=== PATIENT | female | born 1995 | race Caucasian/White ===

== ENCOUNTER 2017-01-03 17:25 | Emergency (ER) | payer BC ==
[2017-01-03 17:36] VITALS: BP 123/66; PULSE 112; TEMP 99; BMI 35.4
[2017-01-03] MEDS ORDERED: ACETAMINOPHEN 325 MG TABLET (FP) PO ONE (17:57)
[2017-01-03] MEDS ORDERED: diazePAM 5 MG TABLET PO ONE (17:57)
[2017-01-03] MEDS ORDERED: ACETAMINOPHEN 325 MG TABLET (FP) ONE (18:04)
[2017-01-03] MEDS ORDERED: diazePAM 5 MG TABLET ONE (18:04)
[2017-01-03 18:16] LABS: URINE BILIRUBIN 1+ (NEGATIVE); URINE GLUCOSE (UA) Negative (NEGATIVE); URINE KETONE Negative (NEGATIVE); URINE NITRITE Negative (NEGATIVE); URINE UROBILINOGEN 0.2 (0.2-1.0)
[2017-01-03 18:21] LABS: URINE APPEARANCE CLOUDY; URINE BLOOD 2+ (NEGATIVE); URINE COLOR YELLOW; URINE LEUK ESTERASE TRACE (NEGATIVE); URINE PROTEIN 2+ (NEGATIVE)
--- NOTE | 2017-01-03 18:29 | PDOC ---
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 The patient states she developed palpitations, sweating, and nausea while giving her speech today prior to developing right flank pain. She states she drove home and noticed she was salivating excessively, but denies feeling anxious in her car. She reports her right flank pain has persisted since her panic attack at 2:45PM today. She reports her pain is exacerbated with movement and alleviated at rest. She reports taking 400 mg Advil at 2:55PM. Secondarily, the patient admits to having dysuria, which she had for a few days before the episode today. The patient states she sees a therapist for her anxiety, but denies taking medication for her anxiety. She denies chest pain, shortness of breath, headache and dizziness. She denies fever, chills, nausea, vomit, diarrhea and constipation. She denies dysuria, frequency, urgency and hematuria. Allergies: NKDA <Carrie Brambila - Last Filed: 01/03/17 18:51> - General Chief Complaint: Back Pain Stated Complaint: BACK PAIN Time Seen by Provider: 01/03/17 17:35 Past History - Past Medical History Psychiatric Problems: Yes (ANXIETY, PANIC DISORDER, SOCIAL ANXIETY) Other medical history: PCOS - Psycho/Social/Smoking Cessation Hx Anxiety: No Suicidal Ideation: No Smoking History: Never smoked Information on smoking cessation initiated: No Hx Alcohol Use: No Drug/Substance Use Hx: No <Kathie Gil - Last Filed: 01/03/17 18:45> <Carrie Brambila - Last Filed: 01/03/17 18:51> - Past Medical History Allergies/Adverse Reactions: Allergies Allergy/AdvReac Type Severity Reaction Status Date / Time No Known Drug Allergies Allergy Verified 01/03/17 17:33 SEAFOOD Allergy Uncoded 01/03/17 17:33 Home Medications: Ambulatory Orders Metformin HCl 500 mg PO BID 01/03/17 Sulfamethoxazole/Trimethoprim [Bactrim Ds Tablet] 1 each PO BID #14 tablet 01/03 Review of Systems - Review of Systems Able to Perform ROS?: Yes Comments:: 01/03/17 18:29 GENERAL/CONSTITUTIONAL: No fever or chills. No weakness. HEAD, EYES, EARS, NOSE AND THROAT: No change in vision. No ear pain or discharge. No sore throat. CARDIOVASCULAR: No chest pain or shortness of breath. RESPIRATORY: No cough, wheezing, or hemoptysis. GASTROINTESTINAL: No nausea, vomiting, diarrhea or constipation. GENITOURINARY: (+) right flank pain and dysuria. No frequency, or change in urination. MUSCULOSKELETAL: No joint or muscle swelling or pain. No neck or back pain. SKIN: No rash NEUROLOGIC: No headache, vertigo, loss of consciousness, or change in strength/ sensation. ENDOCRINE: No increased thirst. No abnormal weight change. HEMATOLOGIC/LYMPHATIC: No anemia, easy bleeding, or history of blood clots. ALLERGIC/IMMUNOLOGIC: No hives or skin allergy. <Carrie Brambila - Last Filed: 01/03/17 18:51> *Physical Exam - Vital Signs Last Vital Signs Temp Pulse Resp BP Pulse Ox 99 F 112 H 20 123/66 97 01/03/17 17:25 01/03/17 17:25 01/03/17 17:25 01/03/17 17:25 01/03/17 17:25 <Kathie Gil - Last Filed: 01/03/17 18:45> - Vital Signs Last Vital Signs Temp Pulse Resp BP Pulse Ox 99 F 112 H 20 123/66 97 01/03/17 17:25 01/03/17 17:25 01/03/17 17:25 01/03/17 17:25 01/03/17 17:25 - Physical Exam Comments: 01/03/17 18:32 GENERAL: Awake, alert, and fully oriented, in no acute distress HEAD: No signs of trauma EYES: PERRLA, EOMI, sclera anicteric, conjunctiva clear ENT: Auricles normal inspection, hearing grossly normal, nares patent, oropharynx clear without exudates. Moist mucosa NECK: Normal ROM, supple, no lymphadenopathy, JVD, or masses LUNGS: Breath sounds equal, clear to auscultation bilaterally. No wheezes, and no crackles HEART: Regular rate and rhythm, normal S1 and S2, no murmurs, rubs or gallops ABDOMEN: (+) mild suprapubic tenderness to palpation without rebound or guarding. Soft, normoactive bowel sounds. No guarding, no rebound. No masses MUSCULOSKELETAL: (+) right CVA tenderness EXTREMITIES: Normal range of motion, no edema. No clubbing or cyanosis. No cords, erythema, or tenderness NEUROLOGICAL: Cranial nerves II through XII grossly intact. Normal speech, normal gait SKIN: (+) multiple superficial linear abrasions to left forearm of various healing stages. Warm, Dry, normal turgor, no rashes or lesions noted. <Carrie Brambila - Last Filed: 01/03/17 18:51> ED Treatment Course - ADDITIONAL ORDERS Additional order review: Laboratory Results 01/03/17 18:00 Urine Color Yellow Urine Appearance Cloudy Urine pH 6.0 Ur Specific [place] >= 1.030 H Urine Protein 2+ H Urine Glucose (UA) Negative Urine Ketones Negative Urine Blood 2+ H Urine Nitrite Negative Urine Bilirubin 1+ H Urine Urobilinogen 0.2 Ur Leukocyte Esterase Trace H - Medications Given in the ED: ED Medications Discontinued Medications Generic Name Dose Route Start Last Admin Trade Name Freq PRN Reason Stop Dose Admin Acetaminophen 650 mg 01/03/17 17:57 01/03/17 18:10 Tylenol - PO 01/03/17 17:58 650 mg ONCE ONE Administration Diazepam 5 mg 01/03/17 17:57 01/03/17 18:10 Valium - PO 01/03/17 17:58 5 mg ONCE ONE Administration <Kathie Gil - Last Filed: 01/03/17 18:45> - ADDITIONAL ORDERS Additional order review: Laboratory Results 01/03/17 18:00 Urine Color Yellow Urine Appearance Cloudy Urine pH 6.0 Ur Specific [place] >= 1.030 H Urine Protein 2+ H Urine Glucose (UA) Negative Urine Ketones Negative Urine Blood 2+ H Urine Nitrite Negative Urine Bilirubin 1+ H Urine Urobilinogen 0.2 Ur Leukocyte Esterase Trace H - Medications Given in the ED: ED Medications Discontinued Medications Generic Name Dose Route Start Last Admin Trade Name Freq PRN Reason Stop Dose Admin Acetaminophen 650 mg 01/03/17 17:57 09/05/17 18:10 Tylenol - PO 01/03/17 17:58 650 mg ONCE ONE Administration Diazepam 5 mg 01/03/17 17:57 01/03/17 18:10 Valium - PO 01/03/17 17:58 5 mg ONCE ONE Administration <Carrie Brambila - Last Filed: 01/03/17 18:51> Medical Decision Making - Medical Decision Making 01/03/17 18:23 21 yo F with h/o anxiety reactions, frequent panic attacks, here with c/o back pain since her panic attack today. pt state was at work had sudden onset palpitations, diaphoresis, and lighteaded similar to prior panic attacks. now c/ o right sided flank pain. worse with movement, does report dysuria. no urgency, no hematuria. on exam awake alert lungs clear heart rrr nomrg. abd soft mild suprapubic ttp, no rebound no guard. mild right cva ttp. no mildlien spinal tenderness. 5/5 all four ext. sensation intact. plan valtrex 1000 mg tid, for 7 days. tylenol for pain. <Kathie Gil - Last Filed: 01/03/17 18:45> *DC/Admit/Observation/Transfer <Kathie Gil - Last Filed: 01/03/17 18:45> - Attestations Scribe Attestion: 01/03/17 18:40 Documentation prepared by Carrie Brambila, acting as medical doctor for Kathie Gil MD <Carrie Brambila - Last Filed: 01/03/17 18:51> Diagnosis at time of Disposition: UTI (urinary tract infection) - Discharge Dispostion Disposition: HOME Condition at time of disposition: Improved - Prescriptions Prescriptions: Sulfamethoxazole/Trimethoprim [Bactrim Ds Tablet] 1 each PO BID #14 tablet - Patient Instructions Printed Discharge Instructions: Urinary Tract Infection, Back Pain ( Alternative Therapy) Additional Instructions: you should take bactrim twice daily x 7 days. take with food. you can take motrin 600 mg every 8 hours as needed for pain. return for any problems or concerns. for your anxiety, you should follow up with your primary psychiatrist.
[2017-01-03] MEDS ORDERED: SULFAMETHOXAZOLE/TRIMETHOPRIM 800MG/160MG D.S. TABLET PO ONE (18:45)
[2017-01-03 18:49] LABS: URINE BACTERIA 2+ /hpf (NEGATIVE)
[2017-01-03] MEDS ORDERED: SULFAMETHOXAZOLE/TRIMETHOPRIM 800MG/160MG D.S. TABLET ONE (18:57)
== END 2017-01-03 19:14 | disposition home or self-care (01) ==
LOC: FER 17:25
DX: N39.0 Urinary tract infection, site not specified (principal); F41.9 Anxiety disorder, unspecified
CPT/HCPCS: 81003; 81015; 84703; 87086; 87186; 99283-25